=== PATIENT | female | born 2005 | race Caucasian/White ===

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

== ENCOUNTER 2025-01-09 12:11 | Outpatient (CLI) | payer MEDICAID, SELFPAY ==
--- OUTSIDE RECORDS SUMMARY | 2025-01-09 12:16 | XMS_ITS | Encounter Summary ---
Author Organization [facility] Address [address] [place] [address] Care Team Providers Care Quality Review Trainer Name Role Phone Unavailable Primary Care Provider Unavailabl e Encounter Details Date Type Department Care Team (Late st Contact Info) Description 01/07/2025 External Device Data [facility] ABSTRACTION Provider, Abstract NO ADDRESS ON FILE Social History Tobacco Use Types Packs/Day Years [...] as of this encounter Plan of Treatment Not on file documented as of this encounter Visit Diagnoses Not on filedocumented in this encounter
--- OUTSIDE RECORDS SUMMARY | 2025-01-09 12:16 | XMS_ITS | Clinical Summary ---
Author Organization [facility] ospital Address [address] [place] [address] Care Team Providers Care Film Examiner Name Role Phone Irlanda Martel NP Primary Care Provider +1- [phone] Allergies No known active allergies Medications albuterol HFA (PROVENTIL HFA,VENTOLIN HFA,PROAIR HFA) 90 mcg/actuation inhaler Inhale 2 puffs every 4 (four) hours as needed for wheezing 03/10/20 21 Active neomycin (MYCIFRADIN) 500 mg tablet Take 1 tablet (500 mg total) by mouth 2 (two) times a day 28 tablet 02/11/20 23 Active Additional Information Patient not taking.Reported on 04/26/2024 cyproheptadine (PERIACTIN) 4 mg tabletIndications: Abdominal pain, vomiting, and diarrhea TAKE 1 TABLET BY MOUTH IN THE MORNING AND AT NIGHT 60 tablet 2 03/31/20 23 Active levonorgestreL-eth inyl estrad (SEASONALE) 0.15 mg-30 mcg (91) per tabletIndications: Menorrhagia with regular cycle Take 1 tablet by mouth daily 91 tablet 3 07/23/19 25 026 Active nortriptyline (PAMELOR) 10 mg capsuleIndications :Cyclic vomiting syndrome,Abdominal pain, vomiting, and diarrhea Take 1 capsule (10 mg total) by mouth nightly 30 capsule 3 08/14/19 25 026 Active ondansetron ODT (ZOFRAN-ODT) 4 mg disintegrating tabletIndications: Cyclic vomiting syndrome Take 1 tablet (4 mg total) by mouth every 12 (twelve) hours as needed for nausea or vomiting 20 tablet 1 11/22/19 25 Active Active Problems Problem Noted Date Diagnosed Date [...] UDS (+) - spoke with the medical health researcher who said results are not false positive [...] the degree of enlargement and likelihood that Deangelo's splenomegaly represents a normal anatomical variant vs pathology necessitating further workup. - F/u with radiology about degree of splenomegaly on CT Encounters Date Type Department Care Team Description 11/22/2024 [facility] Work [address] [place] [address] Tommy Esteban LCSW 11/22/2024 Telephone [facility] Pediatric Gastroenterology [facility] 2nd [place] [address] Kt Ma MD PhD GI Symptoms 11/05/[address] [facility] Adolescent Medicine [facility] [address]nd [place] [address] Zahraa Beverly NP from Last 3 Months Surgical History Surgery Date Site/Laterality Comments TONSILLECTOMY US ABDOMEN COMPLETE W LIVER DOPPLER (C) 06/14/2024 R ight Medical History Medical History Date Comments infant Spleen enlargement Asthma Family History Medical History Relation Name Comments [...] Date Recorded PHQ-2 TOTAL SCORE 0 07/28/2022 Personal Safety Answer Date Recorded Have you ever been in or are you currently in a harmful physical or emotional relationship or is someone making you feel afraid or unsafe? Denies 08/22/2024 Comments No Sex and Gender Information Value Date Recorded Sex Assigned at Not on file Legal Sex Female 7:38 PM GRINDING MACHINE TENDER Gender Identity Not on file Sexual Orientation Not on file Obstetrics History Growth Chart Information Age Height Weight Lrimzf-hvn-brum th Percentile BMI Percentile Head Circum Head Circum Percentile Date 19 years 167 cm (5' 5.75) 54.5 kg (120 lb 2.4 oz) 22.27%* 2024 19 years 165 cm (5' 4.96) 54.7 kg (120 lb 9.5 oz) 29.78%* 2024 19 years 166.8 cm (5' 5.67) 55.4 kg (122 lb 2.2 oz) 27.54%* 2024 19 years 165 cm (5' 4.96) 56.2 kg (123 lb 14.4 oz) 37.93%* 2024 18 years 165 cm (5' 4.96) 54.7 kg (120 lb 9.5 oz) 32.74%* 2023 17 years 55.7 kg (122 lb 12.7 oz) 2022 17 years 164.9 cm (5' 4.92) 56.8 kg (125 lb 3.5 oz) 48.35%* 2022 16 years 164.1 cm (5' 4.61) 59.2 kg (130 lb 8 oz) 64.34%* 2021 16 years 58.3 kg (128 lb 8.5 oz) 2021 15 years 164.2 cm (5' 4.65) 51.4 kg (113 lb 5.1 oz) 30.83%* 2020 15 years 165 cm (5' 4.96) 52.1 kg (114 lb 13.8 oz) 33.01%* 2020 15 years 167.6 cm (5' 6) 52 kg (114 lb 10.2 oz) 24.14%* 2020 15 years 52 kg (114 lb 10.2 oz) 2020 14 years 160 cm (5' 3) 50.3 kg (111 lb) 53.18%* 2019 14 years 160 cm (5' 3) 51.7 kg (114 lb) 60.03%* 2019 14 years 51.7 kg (114 lb) 2019 13 years 52.8 kg (116 lb 6.5 oz) 2018 * [facility] (Girls, 2-20 Years) Last Filed Vital Signs Vital Sign Reading Time Taken Comments Blood Pressure 112/67 08/22/2024 9:15 AM CDT Pulse 61 08/22/2024 9:15 AM CDT Temperature 36 C (96.8 F) 08/22/2024 8:49 AM CDT Respiratory Rate 18 08/22/2024 9:15 AM CDT Oxygen Saturation 100% 08/22/2024 9:15 AM CDT Inhaled Oxygen Concentration - - Weight 54.5 kg (120 lb 2.4 oz) 08/22/2024 7:54 A M CDT Height 167 cm (5' 5.75) 08/22/2024 7:54 AM CDT Body Mass Index 19.54 08/22/2024 7:54 AM CDT Plan of Treatment Health Maintenance Due Date Last Done Comments Hepatitis C Screening 2005 HPV Vaccines (1 - 3-dose series) 2020 Meningococcal B Vaccine (1 of 2 - Standard) 2021 Regular Well Visit/Exam 18-64 2023 Depression Screening 07/29/2023 07/28/2022, 07/29/19 23 Influenza Vaccine (#1) 2024 Chlamydia and Gonorrhea (GC/CT) Screening 07/22/2025 [...] Routine screening for STI (sexually transmitted infection) from Last 3 Months or Most Recently Relevant to Health Maintenance Results * N. gonorrhoeae/C. trachomatis Amplification Urine (07/22/2024 9:56 AM CDT) C. trachomatis Not Detected [facility] Comment:Testing performed by : [facility], [address] [place] [address]., [address] N. gonorrhoeae Not Detected [facility] Comment: Interpretive Data This assay detects Chlamydia trachomatis and Neisseria gonorrhoeae by nucleic acid amplification testing (NAAT). This assay has been cleared by the [place] Food and Drug administration. The performance characteristics of this test have been verified by the [facility] Molecular Infectious Disease laboratory. The performance characteristics of this test have not been evaluated in individuals less than 14 years of age. Current Interpretive Data was last revised on 2023. Testing performed by: [facility], [address] [place] [address]., [address] Urine (None) 07/22/2024 9:56 AM CDT 07/22/2024 11:57 AM CDT us Zahraa Beverly NP LAB MICROBIOLOGY - GENERAL ORDERABLES Final Result [facility] [place] [address] [facility] from Last 3 Months or Most Recently Relevant to Health Maintenance Insurance [facility] [id number] [place] [id number] [facility] [id number] [place] [phone] [place] [address] Advance Directives For more information, please contact: [phone] * Full Code (Latest Code Status on File) Date Activated Date Inactivated Comments 01/24/2021 1:26 AM 01/26/2021 10:05 PM Care Teams Film Examiner Relationship Specialty Start Date End Date Irlanda Martel NP 1 [facility] [address] [place] [address] PCP - General Pediatric Gastroenterology 02/01/23
--- OUTSIDE RECORDS SUMMARY | 2025-01-09 12:16 | XMS_ITS | Encounter Summary ---
Author Organization [facility] Healthcare Address [address] [place] [address] Care Team Providers Care Rib Puller Name Role Phone Irlanda Martel NP Primary Care Provider [phone]- [phone] Encounter Details Date Type Department Care Team (Late st Contact Info) Description 01/28/2022 [facility] Behavioral [facility] Community Resources Initial [facility] [address] [address] [place] [address] Anel Patel Social History Tobacco Use Types [...] on file Legal Sex Female 7:38 PM ADDICTION TREATMENT COUNSELOR Gender Identity Not on file Sexual Orientation Not on file documented as of this encounter Plan of Treatment Not on file documented as of this encounter Visit Diagnoses Not on filedocumented in this encounter Care Teams Rib Puller Relationship Specialty Start Date End Date Irlanda Martel NP [address] [place] [address] PCP - General Pediatric Gastroenterology 02/01/23 documented as of this encounter
--- OUTSIDE RECORDS SUMMARY | 2025-01-09 12:16 | XMS_ITS | Clinical Summary ---
Author Organization [facility] Address [address] [facility] [place] [address] Care Team Providers Care Psychologist Research Assistant Name Role Phone Sabi Renee MD Primary Care Provider [phone] Sabi Renee MD Unavailable [phone] Source Comments [facility],non-owned Affiliates and Associated Physician Practices is amultiple site organization consisting of ambulatory clinics and hospital sitesin [place], [place], [place] and [place]. This disclosure is being madepursuant to the Care Everywhere program and may not contain all information available regarding this patient. Last updated 18.[facility] Allergies No known active allergies Medications * Be aware that medications may not be up to date on this document. Alwaysverify current medications with the patient. albuterol HFA (PROVENTIL;DELROY KARINA;PROAIR) 108 (90 Base) MCG/ACT inhaler INL 2 PUFFS PO Q 4 H PRN 04/09/2019 Active Active Problems Problem Noted Date Diagnosed Date Tonsillith 12/31/2019 Social History Tobacco Use Types Packs/Day Years Used Date Smoking Tobacco: Passive Smo ke Exposure - Never Smoker Smokeless Tobacco: Never Comments:both parents smoke Comments No Sex and Gender Information Value Date Recorded Sex Assigned at Not on file Legal Sex Female 3:47 PM CDT Gender Identity Female 12/31/2019 12:52 PM CDT Sexual Orientation Not on file Last Filed Vital Signs Vital Sign Reading Time Taken Comments Blood Pressure 127/76 01/21/2020 11:20 AM CDT Pulse 66 01/21/2020 11:42 AM CDT Temperature 36.2 C (97.2 F) 01/21/2020 10:44 AM CDT Respiratory Rate 16 01/21/2020 11:4 2 AM CDT Oxygen Saturation 99% 01/21/2020 11: 20 AM CDT Inhaled Oxygen Concentration - - Weight 52.2 kg (115 lb 1.3 oz) 01/21/2020 7:08 A M CDT Height 163.6 cm (5' 4.41) 01/21/2020 7:08 AM CD T Body Mass Index 19.5 01/21/2020 7:08 AM CDT Body Mass Index Percentile 45.94% 01/21/2020 7:0 8 AM CDT Growth Chart: CDC (Girls, 2- 20 Years) Plan of Treatment Health Maintenance Due Date Last Done Comments HIV SCREENING 2020 HPV VACCINE (1 - 3-dose series) 2020 CHLAMYDIA/GONORRHEA SCREENING 2021 MENINGOCOCCAL (Group B) VACC INE SHARED DECISION-MAKING (1 of 2 - Standard) 2021 HEPATITIS C SCREENING 03/29/2023 DTAP/TDAP/TD VACCINES (1 - Tdap) 2024 HEPATITIS B VACCINE (1 of 3 - 19+ 3-dose series) 2024 DEPRESSION SCREENING 04/24/2024 COVID-19 VACCINE (1 - 2023-2 5 season) 2024 INFLUENZA VACCINE (#1) 2024 ZOSTER VACCINE (1 of 2) 2055 HIB VACCINE Aged Out No longer eligi ble based on patient's age to complete this topic MENINGOCOCCAL GROUPS A/C/Y/W VACCINE Aged Out No longer eligible b ased on patient's age to complete this topic PNEUMOCOCCAL VACCINE Aged Out No long er eligible based on patient's age to complete this topic [place] [address] [employer] [facility] [employer] [facility] Care Teams Psychologist Research Assistant Relationship Specialty Start Date End Date Sabi Renee MD PCP - General 01/01/20 Sabi Renee MD Pediatrics 01/01/20
[2025-01-09 13:33] LABS: Hematocrit 41.1 % (37.0-47.0); Hemoglobin 13.0 g/dL (12.0-15.0); Mean Corpuscular HGB Conc 31.6 g/dl (32-36); Mean Corpuscular Hemoglobin 29.7 pg (26-34); Mean Corpuscular Volume 93.8 fl (80-100); Platelet Count Result 375 k/mm3 (150-375); Red Blood Count 4.38 M/mm3 (4.2-5.4); White Blood Count 9.1 K/mm3 (4.5-10.0)
[2025-01-09 13:43] LABS: Hemoglobin A1C 5.2 % (<5.7)
[2025-01-09 13:52] LABS: MALB Creatinine Ratio 4.1 mg/g (0-30)
[2025-01-09 13:59] LABS: Iron 106 ug/dL (37-170)
[2025-01-09 14:11] LABS: Percent Iron Saturation 30 % (20-50)
== END 2025-01-09 12:12 | disposition home or self-care (01) ==
PROVIDERS: PCP Emergency Medicine; Visit Provider Emergency Medicine
DX: Z00.00 Encounter for general adult medical examination without abnormal findings (principal); R16.2 Hepatomegaly with splenomegaly, not elsewhere classified
CPT/HCPCS: 36415; 82043; 83036; 83540; 83550; 85027

== ENCOUNTER 2025-03-21 21:49 | Emergency (ER) | payer MEDICAID, SELFPAY ==
[2025-03-21] VITALS (7 sets, daily range): BP systolic 113–159; BP diastolic 61–100; PULSE 125; RESP 18; TEMP 36.9; O2SAT 96–100
--- NOTE | ~2025-03-21 | CT_ITS ---
CT abdomen pelvis w con Clinical History: abd pain, hematuria . Comparison: None Technique: Axial images lung bases to symphysis pubis 100 mL Omnipaque 350 Coronal, sagittal reformats CT images acquired with automatic exposure control for dose reduction DLP: 182 mGy-cm Findings: Lung bases: Clear. Visualized heart and pericardium: Unremarkable. Liver: Enlarged. Steatosis. Gallbladder: Unremarkable. Spleen: Enlarged. Pancreas: Unremarkable. Adrenal glands: Unremarkable. Kidneys: Right kidney- No hydronephrosis. No renal stones. Left kidney- No hydronephrosis. No renal stones. Distal esophagus/stomach: Unremarkable. Small bowel loops: Normal caliber and wall thickness. Colon: Normal caliber and wall thickness. Normal RLQ appendix. Nodes: No enlarged nodes. Peritoneum: No ascites. No free air. Urinary bladder: Unremarkable. Uterus: Unremarkable. Adnexa: No masses. Bones: No acute bony abnormality. Soft tissues: Unremarkable. Aorta: No aneurysm or dissection. IVC: Unremarkable. Main portal vein/SMV/splenic vein: Patent. IMPRESSION: 1. No acute abnormality. 2. Additional findings as above. Reviewed, dictated and finalized at location [employer]
[2025-03-21 22:14] LABS: BEDSIDEPREGUCG Negative (Negative)
[2025-03-21 22:15] LABS: Hematocrit 43.2 % (37.0-47.0); Hemoglobin 14.4 g/dL (12.0-15.0); Immature Granulocyte Percent A 0.3 % (0-0.5); Lymphocytes Absolute Auto 2.13 K/mm3 (0.9-3.2); Mean Corpuscular HGB Conc 33.3 g/dl (32-36); Mean Corpuscular Hemoglobin 30.3 pg (26-34); Mean Corpuscular Volume 90.9 fl (80-100); Nucleated Red Blood Cells Absolute Auto 0.000 K/mm3 (0.0-0.012); Nucleated Red Blood Cells Perc 0.0 % (0.0-0.2); Platelet Count Result 328 k/mm3 (150-375); Red Blood Count 4.75 M/mm3 (4.2-5.4); White Blood Count 7.6 K/mm3 (4.5-10.0)
[2025-03-21 22:20] LABS: Add Urine Microscopic? YES; Appearance Urine Clear (Clear); Glucose Urine UA Negative (Negative); Leukocyte Esterase Ur Trace LEU/UL (Negative); Nitrate Urine Negative (Negative); Non Pathogenic Casts 0-2; Specific Grav Ur 1.017 (1.001-1.035)
[2025-03-21 22:28] LABS: Alanine Aminotransferase 31 U/L (6-35); Albumin Level 5.3 g/dL (3.7-5.6); Alkaline Phosphatase 96 U/L (45-116); Anion Gap 13 mmol/L (4-12); Aspartate Amino Transferase 35 U/L (14-36); Bilirubin,Total 0.5 mg/dL (0.2-1.3); Blood Urea Nitrogen 10 mg/dL (8-21); Calcium 10.1 mg/dL (8.9-10.7); Carbon Dioxide 24 mmol/L (22-30); Chloride 101 mmol/L (98-107); Estimated CRCL calculation 88 ml/min; Estimated Glomerular Filt Rate > 60; Glucose 109 mg/dL (65-110); Lipase 63 U/L (23-300); Potassium 3.4 mmol/L (3.4-5.0); Sodium 138 mmol/L (134-143); Total Protein 9.1 g/dL (6.3-8.6)
--- NOTE | 2025-03-21 22:33 | ED.ABDPAIN ---
HPI - Abdominal Pain General Chief Complaint: Urogenital-Female Stated Complaint: urinary symptoms Time Seen by Provider: 03/21/25 21:56 Source: patient Mode of arrival: ambulatory Limitations: no limitations History of Present Illness HPI narrative: This is a 19-year-old female that presents to the emergency department for flank pain. Ongoing over the last couple of weeks. Reports associated nausea, vomiting, hematuria. Denies fevers. Related Data Home Medications ?Medication ?Instructions ?Recorded ?Confirmed ?Last Taken ?Type cyproheptadine 4 mg tablet mg 01/11/22 Unknown History norethindrone 1.5 mg-ethinyl tablet 07/25/22 07/25/22 Unknown History estradiol 30 mcg(21)/iron 75 mg(7) tablet ( FE (28)) Allergies Allergy/AdvReac Type Severity Reaction Status Date / Time No Known Allergies Allergy Unknown Verified 03/16/24 13:23 Review of Systems Review of Systems: All systems reviewed & are unremarkable except as noted in HPI and below PMFSH Past Medical History Medical History (Updated 03/22/25 @ 01:18 by Sarah Santoyo PA-C) Anxiety Healthy female adolescent Surgical History Surgical History Hx of tonsillectomy Social History Social History Smoking status: Never smoker Substance use type: marijuana Exam Narrative: GENERAL: Well-appearing, well-nourished, and in no acute distress. HEAD: Normocephalic, atraumatic. EYES: EOMI. CHEST: Clear to auscultation. No respiratory distress. No wheezes rales or rhonchi HEART: Regular rate and rhythm. No murmur heard. Normal peripheral pulses. ABDOMEN: Soft, nontender, nondistended, normal active bowel sounds. EXTREMITIES: Normal range of motion. No edema. SKIN: Warm, dry, no rash. NEURO: No focal deficits. Alert and oriented x3. PSYCH: Normal mood and affect Course Vital Signs Vital signs: Vital Signs Temperature 98.5 F 03/21/25 21:52 Pulse Rate 125 H 03/21/25 21:52 Respiratory Rate 18 03/21/25 21:52 Blood Pressure 159/100 H 03/21/25 21:52 Pulse Oximetry 100 03/21/25 21:52 Oxygen Delivery Room Air 03/21/25 21:52 Temperature 98.5 F 03/21/25 21:52 Pulse Rate 125 H 03/21/25 21:52 Respiratory Rate 18 03/21/25 21:52 Blood Pressure 140/79 03/22/25 01:00 Pulse Oximetry 98 03/22/25 01:00 Oxygen Delivery Room Air 03/21/25 21:52 MDM - Abdominal Pain MDM Narrative Medical decision making narrative: Patient presents the emergency department for flank pain. She is afebrile and nontoxic appearing. Tachycardic upon arrival, this normalized with IV fluids. Cbc without leukocytosis. Metabolic panel and lipase without concerning findings. Urine without evidence of infection. test negative. CT abdomen pelvis without acute findings. Patient was updated on her workup and agrees with plan of care. She is to follow up with primary provider. She was to warnings to return to the ER Differential Diagnosis Differential diagnosis: Likely calculus of kidney, constipation, diverticulitis and other (UTI) Lab Data Attestation: I reviewed the patient's lab results. 03/21/25 22:08 03/21/25 22:08 Labs: Lab Results 03/21/25 03/21/25 Range/Units 22:08 22:11 WBC 7.6 (4.5-10.0) K/mm3 RBC 4.75 (4.2-5.4) M/mm3 Hgb 14.4 (12.0-15.0) g/dL Hct 43.2 (37.0-47.0) % MCV 90.9 (80-100) fl MCH 30.3 (26-34) pg MCHC 33.3 (32-36) g/dl RDW 12.4 (11.5-14.5) % Plt Count 328 (150-375) k/mm3 MPV 9.4 (7.4-10.4) fl Immature Gran % (Auto) 0.3 (0-0.5) % Neut % (Auto) 60.5 (45.5-73.1) % Lymph % (Auto) 27.9 (18.3-44.2) % [place] % (Auto) 8.2 (2.6-8.5) % Eos % (Auto) 2.6 (0-4.4) % Baso % (Auto) 0.5 (0.2-1.2) % Lymph # (Auto) 2.13 (0.9-3.2) K/mm3 [place] # (Auto) 0.6 (0.1-0.6) K/mm3 Eos # (Auto) 0.2 (0-0.3) K/mm3 Baso # (Auto) 0.0 (0.0-0.1) K/mm3 Abs Immat Gran (auto) 0.02 (0.00-0.031) K/mm3 Absolute Neuts (auto) 4.6 (1.3-6.7) K/mm3 Absolute Nucleated RBC 0.000 (0.0-0.012) K/mm3 Nucleated RBC % 0.0 (0.0-0.2) % Sodium 138 (134-143) mmol/L Potassium 3.4 (3.4-5.0) mmol/L Chloride 101 (98-107) mmol/L Carbon Dioxide 24 (22-30) mmol/L Anion Gap 13 H (4-12) mmol/L BUN 10 (8-21) mg/dL Creatinine 0.77 (0.7-1.0) mg/dL Estim Creat Clear Calc 88 ml/min Estimated GFR > 60 (59 - ) Glucose 109 (65-110) mg/dL Calcium 10.1 (8.9-10.7) mg/dL Total Bilirubin 0.5 (0.2-1.3) mg/dL AST 35 (14-36) U/L ALT 31 (6-35) U/L Alkaline Phosphatase 96 (45-116) U/L Total Protein 9.1 H (6.3-8.6) g/dL Albumin 5.3 (3.7-5.6) g/dL Lipase 63 (23-300) U/L Urine Color Yellow (Yellow) Urine Appearance Clear (Clear) Urine pH 7.0 (5.0-9.0) Ur Specific [place] 1.017 (1.001-1.035) Urine Protein Negative (Negative) mg/dL Urine Glucose (UA) Negative (Negative) mg/dL Urine Ketones Negative (Negative) mg/dL Ur Blood (Man) 2+ H (Negative) Urine Nitrate Negative (Negative) Urine Bilirubin Negative (Negative) Urine Urobilinogen 1.0 (<2.0) mg/dL Leukocyte Esterase Rfl Trace H (Negative) TIM/UL Urine RBC 0-2 (0-2) /hpf Urine WBC 0-5 (0-3) /hpf Ur Squamous Epith Cells Few (Few) /hpf Urine Bacteria None seen /hpf Urine Casts 0-2 POC Urine HCG, Qual Negative (Negative) Imaging Data Radiologist's impression: CT abdomen and pelvis: No hydronephrosis or nephrolithiasis. No bowel obstruction or inflammation. Normal appendix. Hepatic steatosis with hepatomegaly. Splenomegaly. Urinary bladder thickening. Correlate with urinalysis Critical Care Time Critical Care Time Critical Care Time: No Discharge Plan Discharge Clinical Impression: Flank pain Qualifiers: Laterality: unspecified laterality Qualified Code(s): R10.A0 - Flank pain, unspecified side Patient Disposition: Home Condition: Stable Instructions: Flank Pain (ED) Additional Instructions: Return to the ER if you experience fever, abdominal pain with nausea and vomiting, you are unable to keep down liquids or solids, blood in the stool, or any other symptoms that are concerning to you Follow up with your primary care doctor Patient Language: Romanian Prescriptions: No Action cyproheptadine 4 mg tablet norethindrone-e.estradiol-iron [ FE 1.5/30 (28)] 1.5 mg-30 mcg (21)/75 mg (7) tablet ondansetron 4 mg tablet,disintegrating 4 mg PO Q8H PRN (Reason: nausea and vomiting) Qty: 10 0RF omeprazole 20 mg capsule,delayed release(DR/EC) 20 mg PO BID Qty: 30 0RF ondansetron 4 mg tablet,disintegrating 4 mg PO Q6H PRN (Reason: nausea and vomiting) Qty: 10 0RF ondansetron 4 mg tablet,disintegrating 4 mg PO Q6H PRN (Reason: nausea and vomiting) Qty: 10 0RF ondansetron 4 mg tablet,disintegrating 4 mg PO Q6-8H PRN (Reason: nausea and vomiting) Qty: 14 0RF Follow-up/Referrals: Uvaldo Carrasquillo MD [Primary Care Provider, Family Practice]
[2025-03-21] MEDS: SODIUM CHLORIDE 0.9% IV 1,000 ML 999 ML IV CONT (22:44)
[2025-03-21] MEDS: ONDANSETRON INJ 4 MG/2 ML VIAL IV PUSH (22:44)
[2025-03-22] VITALS: BP 119/69; O2SAT 97
[2025-03-22 00:15] VITALS: BP 125/70; O2SAT 98
[2025-03-22 00:30] VITALS: BP 124/70; O2SAT 97
[2025-03-22 00:45] VITALS: BP 128/78; O2SAT 98
[2025-03-22 01:00] VITALS: BP 140/79; O2SAT 98
[2025-03-22 01:15] VITALS: BP 136/94; O2SAT 97
== END 2025-03-22 01:26 | disposition home or self-care (01) ==
PROVIDERS: Emergency Provider Physician Assistant; PCP Emergency Medicine
DX: R10.A0 Flank pain, unspecified side (principal); Z79.3 Long term (current) use of hormonal contraceptives
CPT/HCPCS: 36415; 74177; 80053; 81001; 81025; 83690; 85025; 96361; 96374; 99284; J2405; J7030; Q9967